=== PATIENT | female | born 1970 | race Caucasian/White ===

== ENCOUNTER 2016-12-11 10:14 | Emergency (ER) | payer OTHER ==
[~2016-12-11] VITALS: Wt 77.5 kg
[2016-12-11] MEDS ORDERED: LIDOCAINE 1% (MDV) 20 ML INJ ONE (12:02)
[2016-12-11] MEDS ORDERED: HYDR-906 PO (12:44)
[2016-12-11] MEDS ORDERED: IBUP-1542 PO (12:45)
[2016-12-11] MEDS ORDERED: CEPH-443 PO (12:45)
[2016-12-11] MEDS ORDERED: SULF1TAB31 PO (12:45)
[2016-12-11] MEDS ORDERED: HYDROCODONE/APAP (5/325) TAB PO ONE (13:30)
[2016-12-11] MEDS ORDERED: IBUPROFEN 800 MG TAB PO ONE (13:30)
--- NOTE | 2016-12-11 17:42 | ERD ---
ER Documentation Chief Complaint Date/Time DATE: 12/11/16 TIME: 17:39 Chief Complaint abscess on genitourinary area HPI This 45-year-old female presents emergency department today after being sent by her primary care clinic for an abscess on her vagina. Patient was sent for incision and drainage and IV antibiotics. Denies any fevers or chills. States that on Friday night she noticed a small ball and has gotten bigger. ROS All systems reviewed and are negative except as per history of present illness. Medications Home Meds Active Scripts Sulfamethoxazole/Trimethoprim* (Bactrim Ds* Tablet) 1 Each Tablet, 1 TAB PO BID for 7 Days, #14 TAB Prov:ALEJA CARRASCO PA-C 12/11/16 Cephalexin* (Keflex*) 500 Mg Capsule, 500 MG PO QID for 7 Days, CAP Prov:ALEJA CARRASCO PA-C 12/11/16 Ibuprofen* (Motrin*) 600 Mg Tab, 600 MG PO Q6, #30 TAB Prov:ALEJA CARRASCO PA-C 12/11/16 Hydrocodone/Acetaminophen ([place] 5-325 Tablet) 1 Each Tablet, 1 TAB PO Q6H Y for PAIN, #12 TAB Prov:ALEJA CARRASCO PA-C 12/11/16 Allergies Allergies: Coded Allergies: No Known Allergy (Unverified , 12/11/16) PMhx/Soc Medical and Surgical Hx: pt denies Medical Hx, pt denies Surgical Hx Hx Alcohol Use: No Hx Substance Use: No Hx Tobacco Use: No Smoking Status: Never smoker Physical Exam Physical Exam Const: Obese, no acute distress Head: Atraumatic Eyes: Normal Conjunctiva ENT: Normal External Ears, Nose and Mouth. Neck: Full range of motion..~ No meningismus. Resp: Clear to auscultation bilaterally Cardio: Regular rate and rhythm, no murmurs Abd: Soft, non tender, non distended. Normal bowel sounds : Vaginal exam shows evidence of abscess and likely Bartholin's cyst on the left side of the labia. No purulent drainage. Fluctuance with localized erythema. Skin: No petechiae or rashes Back: No midline or flank tenderness Ext: No cyanosis, or edema Neur: Awake and alert Psych: Normal Mood and Affect Results 24 hrs Current Medications Medications (Trade) Dose Ordered Sig/Nathan Route PRN Reason Start Time Stop Time Status Last Admin Dose Admin Lidocaine (Xylocaine 1% (Mdv) 20 ml) 20 ml STK-MED ONCE .ROUTE 12/11/16 12:02 12/11/16 12:03 DC Acetaminophen/ Hydrocodone Bitart ([place] (5/325)) 1 tab ONCE ONCE PO 12/11/16 13:30 12/11/16 13:31 DC 12/11/16 13:10 Ibuprofen (Motrin) 800 mg ONCE ONCE PO 12/11/16 13:30 12/11/16 13:31 DC 12/11/16 13:10 Procedures/MDM This 45-year-old female who presents the emergency department today after being sent by her primary care clinic for an abscess and significant drainage and IV antibiotics. Patient is afebrile and otherwise well-appearing. Do not feel the patient requires IV antibiotics. Low suspicion for sepsis, deep space tracking infection. Patient does have evidence of an abscess on the left side of her labia and likely Bartholin's cyst. I did explain the risks and benefits to the patient that it would be beneficial to do an incision and drainage and patient agreed to proceed. The wound was cleaned in the usual sterile fashion. Patient tolerated the procedure well and there were no complications . Abscess Incision and Drainage with irrigation by me: Location: Left-sided labia Anesthesia: [Local 1% Lidocaine] 5 cc Technique: [11 blade scalpel used to make a 1cm incision in the abscess. Irrigated. Disrupted loculations w/ instrumentation] Packing: Iodoform Complications: [Neurovascularly intact post procedure] Risks and benefits of the procedure were explained to the patient and they agreed to proceed. Area was prepped in the usual sterile fashion. Patient tolerated the procedure well. There were no complications. Patient's skin symptoms have stabilized while they have been evaluated in the department and are appropriate for outpatient care and work up. Exam and w/u not consistent w/ sepsis, deep space infection, or foreign body. 48 hour wound check. Scar minimization instructions given. Patient was given [place] and Motrin here in the emergency department. She is given a prescription for [place], Motrin, Bactrim and Keflex for home. She was instructed to return in 48 hours for wound check. At this time the patient is stable for discharge and outpatient management. Patient should follow up with their PCP in the next 1-2 days. They may return to the emergency department sooner for any persistent or worsening of symptoms. Patient understood and agreed with the plan. Departure Diagnosis: Primary Impression: Abscess of vagina Condition: Fair Patient Instructions: Abscess, Incision And Drainage, Bartholin's Cyst (I And D ) Additional Instructions: Llame al doctor MAANA y [employer] samreen LUCAS PARA DENTRO DE 1-2 AGUAYO.Dgale a la secretaria que nosotros le instruimos hacer esta lucas.Avise o llame si denny condicin se empeora antes de la lucas. Regresa aqui si peor o no mejor. Take [place] for severe pain otherwise take Naprosyn or Tylenol or Motrin Take antibiotics as prescribed Keep wound clean and dry Return in 48 hours for wound check ALEJA CARRASCO PA-C Dec 11, 2016 17:41
== END 2016-12-11 13:16 | disposition home or self-care (01) ==
LOC: FTE 10:14
DX: N76.4 Abscess of vulva (principal)
CPT/HCPCS: 56405; Z7502; Z7610